=== PATIENT | female | born 1975 | race Caucasian/White ===

== ENCOUNTER 2019-10-12 03:01 | Observation (INO) | payer BC ==
[~2019-10-12] VITALS: Ht 175.3 cm; Wt 53.1 kg
[~2019-10-12 03:01] MED LIST: BACTRIM1 TAB PO; DILAUDID4 MG PO; TRAZODONE150 MG PO
--- NOTE | 2019-10-12 03:27 | NUR ---
BY WC TO ROOM
--- NOTE | 2019-10-12 04:00 | NUR ---
PT RESTING. IV STARTED/LABS DRAWN/MEDS GIVEN. PT UP TO BR TO GET URINE SAMPLE PRIOR TO GOING TO CT.
[2019-10-12 04:22] LABS: HEMATOCRIT 38.6 % (37.0-47.0); HEMOGLOBIN 12.8 g/dl (12.0-16.0); IMMATURE GRANULOCYTES 0.2 % (0.0-5.0); MEAN CELL VOLUME 96.5 fL CALC (80.0-100.0); MEAN CORPUSCULAR HGB CONC 33.2 g/L CALC (32.0-36.0); NEUT# 4.68 thou/uL (2.00-7.15); RED CELL DISTRI WIDTH 11.9 % (11.5-15.5)
[2019-10-12 04:28] LABS: ALBUMIN 4.7 g/dL (3.2-5.0); ALKALINE PHOSPHATASE 46 u/l (38-126); AMYLASE 68 u/l (30-110); ANION GAP 12 (6-22 (CALC)); BILIRUBIN, TOTAL 1.1 mg/dL (0.0-1.4); BUN 14 mg/dL (7-17); BUN/CREATININE RATIO 24 (12-20 (CALC)); CARBON DIOXIDE 27 mmol/l (22-30); CHLORIDE 107 mmol/l (95-108); CREATININE 0.6 mg/dL (0.5-1.0); GFR > 60 ML/MIN (>=60 (CALC)); GFR FOR AFR.AMER. > 60 ML/MIN (>=60 (CALC)); LIPASE 130 u/l (23-300); POTASSIUM 4.1 mmol/l (3.5-5.1); SGOT/AST 31 u/l (14-36); SODIUM 141 mmol/l (137-146); TOTAL PROTEIN 7.2 g/dL (6.3-8.2)
[2019-10-12 05:49] LABS: URINE BILIRUBIN - DIPSTICK NEGATIVE (NEGATIVE); URINE BLOOD DIPSTICK SMALL (NEGATIVE); URINE COLOR YELLOW; URINE GLUCOSE - DIPSTICK NEGATIVE (NEGATIVE); URINE KETONE NEGATIVE (NEGATIVE); URINE NITRITE - DIPSTICK NEGATIVE (Negative); URINE PH 5.5 (4.5-8.0); URINE PROTEIN - DIPSTICK NEGATIVE (NEG-TRACE); URINE UROBILINOGEN - DIPSTICK 0.2 E.U./dL (0.2)
[2019-10-12 05:52] LABS: BARBITURATES NEGATIVE (NEGATIVE); COCAINE NEGATIVE (NEGATIVE); METHADONE NEGATIVE (NEGATIVE); OXCYCODONE POSITIVE (NEGATIVE); TETRAHYDROCANNABIONOL NEGATIVE (NEGATIVE); TRICYLIC ANTIDEPRESSANTS NEGATIVE (NEGATIVE)
[2019-10-12 05:57] LABS: URINE BACTERIA FEW hpf; URINE EPITHELIAL CELLS FEW EPI/hpf (0-FEW); URINE LEUK ESTERASE NEGATIVE (NEGATIVE); URINE MUCUS FEW hpf (NONE-FEW)
--- NOTE | 2019-10-12 06:30 | NUR ---
PT WAS GIVEN ATIVAN FOR NGT INSERTION. ATIVAN GIVEN AND PT TO BR. UROJET INSERTED IN RIGHT NARES. # 18 INSERTED INTO RIGHT NARES AND PASSED. NO DIFFICULTY. TO LIS. FILLED CANNISTER WITH 700 CC OF THICK [place] LIQUID. DR TO BEDSIDE. PT REQUESTED PAIN MEDICATION AND MORE IV FLUIDS.
--- NOTE | 2019-10-12 07:38 | NUR ---
REPORT TO JULIÁN STEVENSON.
[2019-10-12] MEDS ORDERED: BIRTH CONTROL PILLS (07:53)
[2019-10-12] MEDS ORDERED: FENTANYL50 MCG/HR TD (07:54)
[2019-10-12] MEDS ORDERED: PERCOCET 5/325M1 TAB PO (07:55)
--- NOTE | 2019-10-12 08:19 | NUR ---
TO FLOOR BY NURSE.
[2019-10-12 08:30] VITALS: BP 111/59
[2019-10-12 16:05] VITALS: BP 115/54
--- NOTE | 2019-10-12 18:27 | NUR ---
DISCHARGE INSTRUCTIONS REVIEWED WITH PT AND SPOUSE AND BOTH IN AGREEMENT WITH THE PLANS. LEFT AC IV SITE AND IV FLUIDS DISCONTINUED. PT QUESTIONS ANSWERED AND PT CHOSE TO WALK DOWN TO FAMILY CAR RATHER THAN BE TAKEN BY WHEELCHAIR. GAIT STEADY. SUPPORT GIVEN.
[2019-10-12 18:35] VITALS: BP 127/63
== END 2019-10-12 18:20 | disposition home or self-care (01) | DRG 390 ==
LOC: ED 03:01 → ED-I 03:55 → ED 03:55 → ED-I 06:34 → ED 06:49 → MS2 06:50
PROVIDERS: Emergency Medicine; ADMIT Internal Medicine; ATTEND Internal Medicine
DX: K56.600 Partial intestinal obstruction, unspecified as to cause (principal); G89.4 Chronic pain syndrome; Z93.2 Ileostomy status; Z90.49 Acquired absence of other specified parts of digestive tract; Z79.891 Long term (current) use of opiate analgesic
CPT/HCPCS: G0378; J2060